=== PATIENT | male | born 1995 | race Caucasian/White ===

== ENCOUNTER 2016-11-01 04:06 | Emergency (ER) | payer OTHER ==
[2016-11-01 05:56] LABS: ABG BASE EXCESS 0.2 (-2.0-2.0); ABG DEVICE NASAL CANN; ABG HCO3 25.5 MEQ/L (22.0-26.0); ABG PARTIAL PRESSURE CO2 43.7 mmHg (35.0-45.0); ABG STANDARD HCO3 24.6 MEQ/L (22.0-26.0); ABG TOTAL CO2 26.8 MEQ/L (22.0-29.0); ABG pH (ARTERIAL) 7.384 UNITS (7.350-7.450)
--- NOTE | 2016-11-01 06:25 | EDDOCDS ---
Physician Documentation [facility] Name: Andre De Oliveira Age: 21 yrs Sex: Male : 1995 Arrival Date: 11/01/2016 Time: 04:06 Bed 9 Private MD: Disposition: 11/01/16 06:18 Discharged to Home/Self Care. Impression: Dyspnea - evaluation of. - Condition is Stable. - Medication Reconciliation, Local Pharmacy Hours form. - Follow up: Private Physician; When: Call to arrange an appointment; Reason: Recheck today's complaints. - Problem is new. - Symptoms have improved. Historical: - Allergies: PENICILLINS; SULFA (SULFONAMIDES); - Home Meds: 1. none - PMHx: Hypertension; Asthma; - PSHx: none; - Social history: Smoking status: Patient uses tobacco products, light tobacco smoker. No barriers to communication noted, The patient speaks fluent Lao, Speaks appropriately for age. - Family history: Not pertinent. - : The pt / caregiver states he / she is not on anticoagulants. Home medication list is obtained from the patient. - Exposure Risk Screening:: None identified. Vital Signs: 11/01 04:21 BP 153 / 93; Pulse 76; Resp 16; Temp 97.1(T); Pulse Ox 98% on R/A; Weight 97.52 kg / cz 214.99 lbs; Height 5 ft. 8 in. (172.72 cm); 06:23 BP 133 / 77; Pulse 64; Resp 18; Temp 98.3(TE); Pulse Ox 99% ; Pain 0/10; ko2 04:21 Body Mass Index 32.69 (97.52 kg, 172.72 cm) cz MDM: 05:14 Call Respiratory ordered. cs11 05:14 Financial registration complete. hs2 05:15 Chest, 2 View (pa\E\lat) Ordered. EDMS 05:15 -Arterial Blood Gas Ordered. EDMS 05:16 ECG WITH READING ER PHYS+CARDIAG ordered. EDMS 05:19 Call Respiratory complete. ml3 05:19 [facility] [place] was [place] into [employer] and attached to record. hs2 06:15 -Arterial Blood Gas Reviewed. cs11 Signatures: Dispatcher MedHost EDMS Bryce Estevez RN RN Nury Farmer, Clinical Documentation Spec Unit ml3 Taras Reza DO DO cs11 Uzma Deal,RN RN ko2 Nikky Ugalde, Reg Reg hs2 The chart was reviewed and I authenticate all verbal orders and agree with the evaluation and treatment provided.Attachments: 05:19 [facility] Payment Agreement hs2 MTDD
--- NOTE | 2016-11-01 06:25 | EDDOCDS ---
Nurse's Notes [facility] [place] Name: Andre De Oliveira Age: 21 yrs Sex: Male : 1995 Arrival Date: 11/01/2016 Time: 04:06 Bed 9 Private MD: Diagnosis: Dyspnea-evaluation of Presentation: 11/01 04:17 Presenting complaint: Patient states: he woke up this morning feeling like he couldn't cz breathe pt denies URI symptoms but sounds congested pt states he wakes up with cotton mouth alot. Adult Sepsis Screening: The patient does not have new or worsening altered mentation. Patient's respiratory rate is less than 22. Systolic blood pressure is greater than 100. Patient has a qSOFA score of 0- Negative Sepsis Screen. Suicide/Homicide risk assessment- the patient denies having any suicidal and/or homicidal ideations and does not present with any other emotional, behavioral or mental health complaints. Status: The patient is an active duty community service worker. Transition of care: patient was not received from another setting of care. 04:17 Acuity: SHEREEN Level 4 cz 04:17 Method Of Arrival: Walkin/Carried/Asstd cz Triage Assessment: 04:21 General: Appears in no apparent distress. Pain: Denies pain. HIV screening NA for this cz visit Offered previously. 06:23 Respiratory: Onset: The symptoms/episode began/occurred just prior to arrival. ko2 Historical: - Allergies: PENICILLINS; SULFA (SULFONAMIDES); - Home Meds: 1. none - PMHx: Hypertension; Asthma; - PSHx: none; - Social history: Smoking status: Patient uses tobacco products, light tobacco smoker. No barriers to communication noted, The patient speaks fluent Azeri, Speaks appropriately for age. - Family history: Not pertinent. - : The pt / caregiver states he / she is not on anticoagulants. Home medication list is obtained from the patient. - Exposure Risk Screening:: None identified. Screenin:47 Screening information is obtained from the patient. Fall risk: No risks identified. ko2 Assistance ADL's: requires no assistance with activities of daily living. Abuse/DV Screen: The patient / caregiver reports he/she is: not in a situation that causes fear, pain or injury. Nutritional screening: No deficits noted. Advance Directives: Currently, there is no health care proxy. There is no active DNR order. There is no living will. There is no Power of Item Processing Clerk. home support is adequate. Assessment: 04:46 General: Appears in no apparent distress, comfortable, Behavior is cooperative. Pain: ko2 Denies pain. Neurological: Level of Consciousness is awake, alert, Oriented to person, place, time. Cardiovascular: Heart tones S1 S2 present. Respiratory: Airway is patent Respiratory effort is even, unlabored. GI: Abdomen is non- distended. Derm: Skin is pink, warm & dry. 06:16 General: Appears in no apparent distress, comfortable, Behavior is appropriate for age, ko2 cooperative. Pain: Denies pain. Neurological: Level of Consciousness is awake, alert. Respiratory: Airway is patent Respiratory effort is even, unlabored. Derm: Skin is pink, warm & dry. 06:23 Respiratory: Breath sounds are clear. ko2 Vital Signs: 04:21 BP 153 / 93; Pulse 76; Resp 16; Temp 97.1(T); Pulse Ox 98% on R/A; Weight 97.52 kg; cz Height 5 ft. 8 in. (172.72 cm); 06:23 BP 133 / 77; Pulse 64; Resp 18; Temp 98.3(TE); Pulse Ox 99% ; Pain 0/10; ko2 04:21 Body Mass Index 32.69 (97.52 kg, 172.72 cm) cz Vitals: 04:21 Log In Time: November 01, 2016 at 04:06. ED Course: 04:08 Patient visited by Easton Alonso, Reg. pm4 04:08 Patient moved to Waiting pm4 04:20 Triage Initiated cz 04:22 Uzma Deal,RN is Primary Nurse. cz 04:22 Patient moved to 9 cz 04:46 Patient visited by Uzma Deal,DOROTHY. ko2 05:06 Taras Reza DO is Attending Physician. cs11 05:06 Patient visited by Taras Reza DO. cs11 05:19 [facility] [place] Agreement was scanned into [employer] and attached to record. hs2 05:35 Patient visited by Steve Valero PCA. kb5 05:35 EKG done. (by ED staff). Reviewed by Taras Reza DO. kb5 05:46 -Arterial Blood Gas Sent. lf2 06:16 Patient visited by Uzma Deal RN. ko2 06:23 The patient / caregiver is instructed regarding the plan of care and ED course. ko2 06:23 No IV's were initiated during this patient's visit. No procedures done that require ko2 assistance. RT: 05:46 ABG's drawn from left radial artery allens test done and positive pressure held for 5 lf2 minutes pressure bandage applied specimen sent pt. tolerated well. Oxygen is room air. Respiratory: Respiratory effort is even, unlabored, Respiratory pattern is regular symmetrical, Breath sounds are clear bilaterally. Breath sounds are diminished bilaterally. Denies cough, shortness of breath at rest, on exertion. Order Results: Lab Order: -Arterial Blood Gas; SPEC'M 11/01/16 05:46 Test: ABG pH (ARTERIAL); Value: 7.384; Range: 7.350-7.450; Units: UNITS; Status: F Test: ABG PARTIAL PRESSURE CO2; Value: 43.7; Range: 35.0-45.0; Units: mmHg; Status: F Test: ABG PARTIAL PRESSURE O2; Value: 97.0; Range: 75.0-100.0; Units: mmHg; Status: F Test: ABG TOTAL CO2; Value: 26.8; Range: 22.0-29.0; Units: MEQ/L; Status: F Test: ABG HCO3; Value: 25.5; Range: 22.0-26.0; Units: MEQ/L; Status: F Test: ABG BASE EXCESS; Value: 0.2; Range: -2.0-2.0; Status: F Test: ABG STANDARD HCO3; Value: 24.6; Range: 22.0-26.0; Units: MEQ/L; Status: F Test: ABG O2 SATURATION; Value: 97.6; Range: 95.0-99.0; Units: %; Status: F Test: ABG DEVICE; Value: NASAL IRVIN; Status: F Outcome: 06:18 Discharge ordered by Provider. cs11 06:24 Discharge Assessment: Patient awake, alert and oriented x 3. No cognitive and/or ko2 functional deficits noted. Patient verbalized understanding of disposition instructions. patient administered narcotics - no. The following High Risk Discharge criteria are identified: None. Discharged to home ambulatory. Condition: stable. Discharge instructions given to patient, Instructed on discharge instructions, follow up and referral plans. Demonstrated understanding of instructions, Pt was receptive of discharge instructions/ teaching. No special radiology studies were completed. Property sent home with patient. 06:24 Patient left the ED. koKylee Signatures: Bryce Estevez, RN RN cz Steve Valero, SIGHT MOUNTER SIGHT MOUNTER kb5 Taras Reza, DO DO cs11 Uzma Deal RN RN ko2 Gretchen Haq,RT RT lf2 Nikky Ugalde, Reg Reg hs2 Easton Alonso, Reg Reg pm4 MTDD
--- NOTE | 2016-11-01 08:50 | ECGEPIP ---
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
--- NOTE | 2016-11-03 07:24 | EDDOCDS ---
Physician Documentation [facility] Name: Andre De Oliveira Age: 21 yrs Sex: Male : 1995 Arrival Date: 11/01/2016 Time: 04:06 Bed 9 Private MD: Disposition: 11/01/16 06:18 Discharged to Home/Self Care. Impression: Dyspnea - evaluation of. - Condition is Stable. - Medication Reconciliation, Local Pharmacy Hours form. - Follow up: Private Physician; When: Call to arrange an appointment; Reason: Recheck today's complaints. - Problem is new. - Symptoms have improved. Historical: - Allergies: PENICILLINS; SULFA (SULFONAMIDES); - Home Meds: 1. none - PMHx: Hypertension; Asthma; - PSHx: none; - Social history: Smoking status: Patient uses tobacco products, light tobacco smoker. No barriers to communication noted, The patient speaks fluent [place], Speaks appropriately for age. - Family history: Not pertinent. - : The pt / caregiver states he / she is not on anticoagulants. Home medication list is obtained from the patient. - Exposure Risk Screening:: None identified. Vital Signs: 11/01 04:21 BP 153 / 93; Pulse 76; Resp 16; Temp 97.1(T); Pulse Ox 98% on R/A; Weight 97.52 kg / cz 214.99 lbs; Height 5 ft. 8 in. (172.72 cm); 06:23 BP 133 / 77; Pulse 64; Resp 18; Temp 98.3(TE); Pulse Ox 99% ; Pain 0/10; ko2 04:21 Body Mass Index 32.69 (97.52 kg, 172.72 cm) cz MDM: 05:14 Call Respiratory ordered. cs11 05:14 Financial registration complete. hs2 05:15 Chest, 2 View (pa\E\lat) Ordered. EDMS 05:15 -Arterial Blood Gas Ordered. EDMS 05:16 ECG WITH READING ER PHYS+CARDIAG ordered. EDMS 05:19 Call Respiratory complete. ml3 05:19 [place] [place] was scanned into [email or web address] and attached to record. hs2 06:15 -Arterial Blood Gas Reviewed. cs11 14:12 T-Sheet-- Draft Copy was scanned into [email or web address] and attached to record. gb 14:12 ECG/EKG was scanned into MEDHOST and attached to record. gb Signatures: Dispatcher MedHost EDMS Bryce Estevez, DOROTHY RN cz Martha Mulligan, Reg Reg gb Sherif Mercedeszabeth, Sole Splitter Unit ml3 Taras Reza, DO DO cs11 Uzma Deal RN RN ko2 Nikky Ugalde, Reg Reg hs2 The chart was reviewed and I authenticate all verbal orders and agree with the evaluation and treatment provided.Attachments: 05:19 [facility] Payment Agreement hs2 14:12 T-Sheet-- Draft Copy gb 14:12 ECG/EKG gb Chart Complete MTDD
--- NOTE | 2016-11-03 07:24 | EDDOCDS ---
Physician Documentation [facility] Name: Andre De Oliveira Age: 21 yrs Sex: Male : 1995 Arrival Date: 11/01/2016 Time: 04:06 Bed 9 Private MD: Disposition: 11/01/16 06:18 Discharged to Home/Self Care. Impression: Dyspnea - evaluation of. - Condition is Stable. - Medication Reconciliation, Local Pharmacy Hours form. - Follow up: Private Physician; When: Call to arrange an appointment; Reason: Recheck today's complaints. - Problem is new. - Symptoms have improved. Historical: - Allergies: PENICILLINS; SULFA (SULFONAMIDES); - Home Meds: 1. none - PMHx: Hypertension; Asthma; - PSHx: none; - Social history: Smoking status: Patient uses tobacco products, light tobacco smoker. No barriers to communication noted, The patient speaks fluent Emirati, Speaks appropriately for age. - Family history: Not pertinent. - : The pt / caregiver states he / she is not on anticoagulants. Home medication list is obtained from the patient. - Exposure Risk Screening:: None identified. Vital Signs: 11/01 04:21 BP 153 / 93; Pulse 76; Resp 16; Temp 97.1(T); Pulse Ox 98% on R/A; Weight 97.52 kg / cz 214.99 lbs; Height 5 ft. 8 in. (172.72 cm); 06:23 BP 133 / 77; Pulse 64; Resp 18; Temp 98.3(TE); Pulse Ox 99% ; Pain 0/10; ko2 04:21 Body Mass Index 32.69 (97.52 kg, 172.72 cm) cz MDM: 05:14 Call Respiratory ordered. cs11 05:14 Financial registration complete. hs2 05:15 Chest, 2 View (pa\E\lat) Ordered. EDMS 05:15 -Arterial Blood Gas Ordered. EDMS 05:16 ECG WITH READING ER PHYS+CARDIAG ordered. EDMS 05:19 Call Respiratory complete. ml3 05:19 [facility] [place] was scanned into [employer] and attached to record. hs2 06:15 -Arterial Blood Gas Reviewed. cs11 14:12 T-Sheet-- Draft Copy was scanned into [employer] and attached to record. gb 14:12 ECG/EKG was scanned into MEDHOST and attached to record. gb Signatures: Dispatcher MedHost EDMS Bryce Estevez, DOROTHY RN cz Martha Mulligan, Reg Reg gb Sherif Mercedeszabeth, Admitting Representative Unit ml3 Taras Reza, DO DO cs11 Uzma Deal RN RN ko2 Nikky Ugalde, Reg Reg hs2 The chart was reviewed and I authenticate all verbal orders and agree with the evaluation and treatment provided.Attachments: 05:19 [facility] Payment Agreement hs2 14:12 T-Sheet-- Draft Copy gb 14:12 ECG/EKG gb Chart Complete MTDD
--- NOTE | 2016-11-03 07:25 | EDDOCDS ---
Nurse's Notes [facility] Name: Jameel Yun Age: 21 yrs Sex: Male : 1995 Arrival Date: 11/01/2016 Time: 04:06 Bed 9 Private MD: Diagnosis: Dyspnea-evaluation of Presentation: 11/01 04:17 Presenting complaint: Patient states: he woke up this morning feeling like he couldn't cz breathe pt denies URI symptoms but sounds congested pt states he wakes up with cotton mouth alot. Adult Sepsis Screening: The patient does not have new or worsening altered mentation. Patient's respiratory rate is less than 22. Systolic blood pressure is greater than 100. Patient has a qSOFA score of 0- Negative Sepsis Screen. Suicide/Homicide risk assessment- the patient denies having any suicidal and/or homicidal ideations and does not present with any other emotional, behavioral or mental health complaints. Status: The patient is an active duty lunchroom food service supervisor. Transition of care: patient was not received from another setting of care. 04:17 Acuity: SHEREEN Level 4 cz 04:17 Method Of Arrival: Walkin/Carried/Asstd cz Triage Assessment: 04:21 General: Appears in no apparent distress. Pain: Denies pain. HIV screening NA for this cz visit Offered previously. 06:23 Respiratory: Onset: The symptoms/episode began/occurred just prior to arrival. ko2 Historical: - Allergies: PENICILLINS; SULFA (SULFONAMIDES); - Home Meds: 1. none - PMHx: Hypertension; Asthma; - PSHx: none; - Social history: Smoking status: Patient uses tobacco products, light tobacco smoker. No barriers to communication noted, The patient speaks fluent Portuguese, Speaks appropriately for age. - Family history: Not pertinent. - : The pt / caregiver states he / she is not on anticoagulants. Home medication list is obtained from the patient. - Exposure Risk Screening:: None identified. Screenin:47 Screening information is obtained from the patient. Fall risk: No risks identified. ko2 Assistance ADL's: requires no assistance with activities of daily living. Abuse/DV Screen: The patient / caregiver reports he/she is: not in a situation that causes fear, pain or injury. Nutritional screening: No deficits noted. Advance Directives: Currently, there is no health care proxy. There is no active DNR order. There is no living will. There is no Power of Data Analysis Assistant. home support is adequate. Assessment: 04:46 General: Appears in no apparent distress, comfortable, Behavior is cooperative. Pain: ko2 Denies pain. Neurological: Level of Consciousness is awake, alert, Oriented to person, place, time. Cardiovascular: Heart tones S1 S2 present. Respiratory: Airway is patent Respiratory effort is even, unlabored. GI: Abdomen is non- distended. Derm: Skin is pink, warm & dry. 06:16 General: Appears in no apparent distress, comfortable, Behavior is appropriate for age, ko2 cooperative. Pain: Denies pain. Neurological: Level of Consciousness is awake, alert. Respiratory: Airway is patent Respiratory effort is even, unlabored. Derm: Skin is pink, warm & dry. 06:23 Respiratory: Breath sounds are clear. ko2 Vital Signs: 04:21 BP 153 / 93; Pulse 76; Resp 16; Temp 97.1(T); Pulse Ox 98% on R/A; Weight 97.52 kg; cz Height 5 ft. 8 in. (172.72 cm); 06:23 BP 133 / 77; Pulse 64; Resp 18; Temp 98.3(TE); Pulse Ox 99% ; Pain 0/10; ko2 04:21 Body Mass Index 32.69 (97.52 kg, 172.72 cm) cz Vitals: 04:21 Log In Time: November 01, 2016 at 04:06. ED Course: 04:08 Patient visited by Easton Alonso, Reg. pm4 04:08 Patient moved to Waiting pm4 04:20 Triage Initiated cz 04:22 Uzma Deal,RN is Primary Nurse. cz 04:22 Patient moved to 9 cz 04:46 Patient visited by Uzma Deal,DOROTHY. ko2 05:06 Taras Landon DO is Attending Physician. cs11 05:06 Patient visited by Taras Landon DO. cs11 05:19 [place] [place] was scanned into F[employer] and attached to record. hs2 05:35 Patient visited by Steve Valero PCA. kb5 05:35 EKG done. (by ED staff). Reviewed by Taras Landon DO. kb5 05:46 -Arterial Blood Gas Sent. lf2 06:16 Patient visited by Uzma Deal RN. ko2 06:23 The patient / caregiver is instructed regarding the plan of care and ED course. ko2 06:23 No IV's were initiated during this patient's visit. No procedures done that require ko2 assistance. 08:27 Chest, 2 View (pa\E\lat) Returned. EDMS 09:06 EKG-ADULT Returned. EDMS 14:12 T-Sheet-- Draft Copy was scanned into Fancy and attached to record. gb 14:12 ECG/EKG was scanned into Fancy and attached to record. gb RT: 05:46 ABG's drawn from left radial artery allens test done and positive pressure held for 5 lf2 minutes pressure bandage applied specimen sent pt. tolerated well. Oxygen is room air. Respiratory: Respiratory effort is even, unlabored, Respiratory pattern is regular symmetrical, Breath sounds are clear bilaterally. Breath sounds are diminished bilaterally. Denies cough, shortness of breath at rest, on exertion. Order Results: Lab Order: -Arterial Blood Gas; SPEC'M 11/01/16 05:46 Test: ABG pH (ARTERIAL); Value: 7.384; Range: 7.350-7.450; Units: UNITS; Status: F Test: ABG PARTIAL PRESSURE CO2; Value: 43.7; Range: 35.0-45.0; Units: mmHg; Status: F Test: ABG PARTIAL PRESSURE O2; Value: 97.0; Range: 75.0-100.0; Units: mmHg; Status: F Test: ABG TOTAL CO2; Value: 26.8; Range: 22.0-29.0; Units: MEQ/L; Status: F Test: ABG HCO3; Value: 25.5; Range: 22.0-26.0; Units: MEQ/L; Status: F Test: ABG BASE EXCESS; Value: 0.2; Range: -2.0-2.0; Status: F Test: ABG STANDARD HCO3; Value: 24.6; Range: 22.0-26.0; Units: MEQ/L; Status: F Test: ABG O2 SATURATION; Value: 97.6; Range: 95.0-99.0; Units: %; Status: F Test: ABG DEVICE; Value: NASAL IRVIN; Status: F Radiology Order: Chest, 2 View (pa\E\lat) Test: Chest, 2 View (pa\E\lat) REASON FOR EXAMINATION: Shortness of Breath; Clinical: Shortness of breath .; ; Comparison: 09/17/2015 .; ; Technique: PA and lateral.; ; Findings:; The mediastinum and cardiac silhouette are normal. The lung henao are clear and; without acute consolidation, effusion, or pneumothorax. The skeletal structures; are intact and normal.; ; Impression:; 1. 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 cs11 06:24 Discharge Assessment: Patient awake, alert and oriented x 3. No cognitive and/or ko2 functional deficits noted. Patient verbalized understanding of disposition instructions. patient administered narcotics - no. The following High Risk Discharge criteria are identified: None. Discharged to home ambulatory. Condition: stable. Discharge instructions given to patient, Instructed on discharge instructions, follow up and referral plans. Demonstrated understanding of instructions, Pt was receptive of discharge instructions/ teaching. No special radiology studies were completed. Property sent home with patient. 06:24 Patient left the ED. ko2 Signatures: Dispatcher MedHost EDMS Bryce Estevez, RN RN Martha Meza, Reg Reg gb Marylu, Steve, RADIO STATION OPERATOR RADIO STATION OPERATOR kb5 Taras Landon DO DO cs11 Uzma Deal RN RN ko2 Gretchen Haq,RT RT lf2 Nikky Ugalde, Reg Reg hs2 Easton Alonso, Reg Reg pm4 Chart Complete MTDD
== END 2016-11-01 06:24 | disposition home or self-care (01) ==
LOC: M ED 04:06
DX: R06.00 Dyspnea, unspecified (principal); I10 Essential (primary) hypertension; J45.909 Unspecified asthma, uncomplicated; F17.210 Nicotine dependence, cigarettes, uncomplicated; Z88.0 Allergy status to penicillin; Z88.2 Allergy status to sulfonamides